=== PATIENT | male | born 1980 | race Caucasian/White ===

== ENCOUNTER 2020-09-11 14:00 | Emergency (ER) | payer MEDICAID, SELFPAY ==
--- NOTE | 2020-09-11 14:00 | RT.EKG_ITS ---
APPROVED REPORT Exam: Resting ECG Reason for Exam: chest pain Patient Location: E HR:64 bpm ECG Measurements Heart Rate 64 AXIS MD 167 P 44 QRSd 89 QRS 43 QT 356 T 35 QTc 368 Conclusion Sinus rhythm...normal P axis, V-rate 60- 99 No STEMI, no significant st elevation or depression.
[2020-09-11 14:05] VITALS: BP 152/94; PULSE 87; RESP 16; TEMP 36.7; O2SAT 98
--- NOTE | 2020-09-11 14:10 | DI.CT_ITS ---
Exam(s) CT CHEST/ABD/PEL W EXAM: CT CHEST/ABD/PEL W CLINICAL HISTORY: ruq pain and chest pain, sob. TECHNIQUE: Imaging Protocol: Axial computed tomography images with coronal and sagittal reformatted images were created and reviewed CONTRAST MATERIAL: Intravenous: Omnipaque 350 Contrast volume:100 ml Oral: None COMPARISON: No exams were available for comparison FINDINGS: CHEST: LUNGS: Some respiratory motion artifact noted.. There are mild increased markings both lung bases. No air bronchograms. No pleural effusions. No ominous pulmonary nodules evident. No significant fo madina findings in the trachea and mainstem bronchi. No bronchiectasis.. MEDIASTINUM: There is no hilar nor mediastinal adenopathy. Visualized thyroid unremarkable. CARDIAC: Heart size is upper normal. There is no pericardial effusion.Caliber of the thoracic aorta is within normal limits. OSSEOUS: No significant osseous lesions.. ABDOMEN: There is no ascites. LIVER: There are no focal hepatic lesions nor dilatation of intrahepatic ducts. GALLBLADDER/BILIARY: The gallbladder is contracted and difficult to evaluate. CBD is not dilated. PANCREAS: No evidence of pancreatic mass nor dilatation of the pancreatic duct. SPLEEN: Spleen size is upper normal.. There are no intrasplenic lesions. Splenic and portal veins a re patent. ADRENALS: There are no significant adrenal masses. KIDNEYS: No calculi nor hydronephrosis. No solid renal masses. Small 4 millimeters cyst in the inferi or aspect of the right kidney. ABDOMINAL AORTA: Abdominal aorta is not enlarged. LYMPH NODES: There is no retroperitoneal nor paraaortic adenopathy. ABDOMINAL WALL: No evidence of significant anterior abdominal wall hernia. There is a small fat cont aining anterior abdominal wall midline umbilical hernia. GI: There is no evidence of bowel obstruction. PELVIS: LYMPH NODES: There is no intrapelvic nor inguinal adenopathy. GI: No evidence of appendicitis.No evidence of sigmoid diverticulitis. URINARY BLADDER: No calculi nor masses evident REPRODUCTIVE: Prostate gland is enlarged and heterogeneous. Measures 5.8 cm wide by 4.3 cm AP. No o bturator adenopathy evident. OSSEOUS: No significant osseous lesions. IMPRESSION: 1. No significant acute intrathoracic findings. No pleural effusions 2. Enlarged heterogeneous prostate gland. Urology consultation recommended. 3. No other significant findings. 4. RADIATION DOSE DELIVERED: 1,435.2mGy.cm Total DLP DATA REPOSITORY: All CT scans at this facility are submitted to the National Radiology Data Registry (NRDR) Dose Index Registry (DIR) with the [employer] (ACR). RADIATION OPTIMIZATION: All CT scans at this facility use at least one of these dose optimization te chniques: automated exposure control; mA and/or kV adjustment per patient size (includes targeted exa ms where dose is matched to clinical indication); or iterative reconstruction.
--- NOTE | 2020-09-11 14:16 | W.ED.GENAD ---
Discharge Plan Disposition Patient Disposition: HOME Condition: Good Discharge Details Clinical Impression: Enlarged prostate, Biliary colic, Abdominal pain, acute, right upper quadrant Primary Care Provider: Melida Garcia ED Provider: Pedro Mariano Home Meds and New Rx's Prescriptions: Continued quetiapine 100 mg tablet See Rx Instructions PO .COMPLEX Qty: 30 RF: 1 naproxen 500 mg tablet 500 mg PO BID Qty: 14 RF: 0 nystatin 100,000 unit/gram powder 1 applic topical BID Qty: 60 RF: 0 Discharge Instructions Instructions: Biliary Colic (ED) Additional Instructions: At this time your work-up is very reassuring and shows no signs of etiologies requiring emergent surgical management. Your symptoms are concerning for what is called biliary colic which is a spasm of your gallbladder that is brought on by greasy foods. Please avoid any greasy food, dairy foods, or meats. Please take ibuprofen as needed for control of the pain. If you change your diet and still have persistent pain you may require surgery. Please follow-up closely with Dr. Ni the surgeon. If you notice any worsening of your symptoms, or any new symptoms such as vomiting, diarrhea, fever, chills, shortness of breath, chest pain, numbness, weakness, or fainting , please return immediately to the emergency department for reevaluation. Please follow up with your primary care provider as soon as possible for reassessment and reevaluation. As always, it was a pleasure participating in your medical care today. Additionally you do show evidence of enlargement of your prostate. Please follow-up closely with Dr. Abreu of urology for further assessment of this. Stand Alone Forms: Work Release Referrals: Tomy Abreu MD [ [facility] STAFF PHYSICIAN] - Kira Ni MD [ [facility] STAFF PHYSICIAN] - Melida Garcia, CHASER APPRENTICE [Primary Care Provider] - Medical Decision Making 40-year-old male who presents today for evaluation of right sided flank and epigastric/chest pain. Patient speaks [place]i, his friend is at bedside. Both patients have verbalized in Ghanaian but they are comfortable translating and speaking for 1 another. Patient states that for the last 3 weeks the patient has had gradual onset right sided/flank abdominal pain. It is gradually worsened, and notably become severe over the last 3 days. He states that it radiates to his right chest and to his back. He denies any tearing or ripping. He denies any cough, fever, vomiting or diarrhea. He denies any urinary complaint or genital pain. He denies previous abdominal surgeries. He states that he has been taking a notable amount of ibuprofen and Tylenol to help his pain. He denies having symptoms like this in the past otherwise. No other complaints at this time. No other modifying factors. He denies any falls or traumas. Physical exam demonstrates notable right-sided flank rib and right upper quadrant abdominal tenderness. Voluntary guarding is present. No signs of deformity or trauma. No genital tenderness. Differential is broad but includes gallbladder pathology, kidney stone, or lower pulmonary pathology. Based on the location findings and pain I do feel that CT scan is indicated at this time. We will treat the patient's pain rehydrate evaluate for atypical cardiac etiology, monitor closely and reassess. 4:50 PM Patient's laboratory work-up and CT scan have returned notably reassuring. No evidence of acute cholecystitis or kidney stone. Gallbladder is notably spasm, upon repeat discussion with the patient it does appear that he has a diet that is notably engorged with fatty foods. He does not notice a specific focus of fatty foods in his pain, but does state that most of what he eats is high fat and greasy. Suspect that this is the cause of his the symptomatology. Patient has almost complete resolution of his pain after IV Toradol. Patient feels well, vital signs stable. An incidental finding noted on the CT scan is an enlarged prostate. He continues to deny any urinary symptoms. Recommend close follow-up with urology. Discussed red flags, dietary changes for which to abide by. I have extensively reviewed the treatment plan and discharge instructions with the patient and their family. I have addressed all patient concerns at this time. The patient and family was made aware of what symptoms to monitor for that would warrant a return to the emergency department. Discussed the plan with the patient and family, they demonstrate verbal understanding and agreement with our assessment and plan at this time. The documentation in this chart was dictated using [employer] dictation software. Please excuse any dictation errors. FINDINGS: Lungs: Bibasilar atelectasis . No focal consolidation Pleural spaces: Unremarkable. No pneumothorax. No pleural effusion. Heart: Unremarkable. No cardiomegaly. No pericardial effusion. Aorta: Unremarkable. No aortic aneurysm. Lymph nodes: Unremarkable. No enlarged lymph nodes. Bones/joints: Unremarkable. No acute fracture. Soft tissues: Unremarkable. IMPRESSION: No acute process FINDINGS: Liver: Normal. No mass. Gallbladder and bile ducts: Contracted gallbladder Pancreas: Normal. No ductal dilation. Spleen: Normal. No splenomegaly. Adrenal glands: Normal. No mass. Kidneys and ureters: Normal. No hydronephrosis. Stomach and bowel: Unremarkable. No obstruction. No mucosal thickening. Appendix: Normal appendix Intraperitoneal space: Unremarkable. No free air. No significant fluid collection. Vasculature: Unremarkable. No abdominal aortic aneurysm. Lymph nodes: Unremarkable. No enlarged lymph nodes. Urinary bladder: Unremarkable as visualized. Reproductive: The prostate is enlarged and heterogeneous, greater than 5 cm. Recommend urology consult. Bones/joints: Unremarkable. No acute fracture. Soft tissues: Unremarkable. IMPRESSION: The prostate is enlarged and heterogeneous, greater than 5 cm. Recommend urology consult. Thank you for allowing us to participate in the care of your patient. Dictated and Authenticated by: Octaviano Chowdary MD 09/11/2020 4:10 PM Eastern Time ([place] & [place]) HPI General Date/Time Provider Initiated Documentation: 09/11/20 14:10. HPI Narrative: 40-year-old male who presents today for evaluation of right sided flank and epigastric/chest pain. Patient speaks [place]i, his friend is at bedside. Both patients have verbalized in [place]ian but they are comfortable translating and speaking for 1 another. Patient states that for the last 3 weeks the patient has had gradual onset right sided/flank abdominal pain. It is gradually worsened, and notably become severe over the last 3 days. He states that it radiates to his right chest and to his back. He denies any tearing or ripping. He denies any cough, fever, vomiting or diarrhea. He denies any urinary complaint or genital pain. He denies previous abdominal surgeries. He states that he has been taking a notable amount of ibuprofen and Tylenol to help his pain. He denies having symptoms like this in the past otherwise. No other complaints at this time. No other modifying factors. He denies any falls or traumas. Related Data Home Medications Medication Instructions Recorded Confirmed quetiapine 100 mg tablet See Rx Instructions PO .COMPLEX 08/06/20 08/31/20 #30 tab naproxen 500 mg tablet 500 mg PO BID #14 tab 08/27/20 08/31/20 nystatin 100,000 unit/gram topical 1 applic TOPICAL BID #60 g 08/27/20 08/31/20 powder Previous Rx's Medication Instructions Recorded quetiapine 100 mg tablet See Rx Instructions PO .COMPLEX 08/06/20 #30 tab naproxen 500 mg tablet 500 mg PO BID #14 tab 08/27/20 nystatin 100,000 unit/gram topical 1 applic TOPICAL BID #60 g 08/27/20 powder Allergies Allergy/AdvReac Type Severity Reaction Status Date / Time No Known Allergies Allergy Verified 09/11/20 14:09 General Stated Complaint: Abd Prob EULALIO: 3 Review of Systems All systems reviewed & are unremarkable except as noted in HPI and below PFSH Medical History History of ADHD Lumbar pain Neck pain Nicotine use disorder Personal history of schizophrenia Primary language is Bahraini Surgical History No significant past surgical history Family History Mother No problems noted. Father Unknown family medical history Social History Smoking/Tobacco Use Status: Current every day Quit status: considering quitting Smoking risk assessment performed?: Yes Alcohol Intake: current Alcohol Intake frequency: a few times a month Substance use type: does not use Household members: family Number of Children: 1 Communication Needs: Language Barriers current occupation: Construction. Of [place] ethnicity; primary language Bahraini. Sexually active: Yes Do you think of yourself as: straight/heterosexual Current gender identity: male Exam Narrative Exam Narrative: 1.Const: Well-nourished, Well-developed, appearing stated age 2.Eyes: PERRL, no conjunctival injection, and symmetrical lids. 3.ENT: Atraumatic external nose and ears. Dry MM. Neck: Symmetric, trachea midline, No thyromegaly. 4.CVS: +S1/S2, No murmurs or gallops. Peripheral pulses 2+ and equal in all extremities. Brisk capillary refill in all extremities. 5.RESP: Unlabored respiratory effort. Diminished breath sounds throughout, but otherwise clear to auscultation bilaterally. No wheezes rales or rhonchi 6.GI: Soft, pain in the right upper quadrant, notably reproducible. Voluntary guarding is present. Right CVA tenderness is present. Mild right posterior rib pain is present. No genital pain or discomfort. No testicular tenderness. 7.MSK: Normocephalic/Atraumatic, Extremities w/o deformity or ttp No cyanosis or clubbing, Normal movement of all extremities. No evidence of bruising or paradoxical movements over the right ribs. 8.Skin: Warm, Dry. No rashes or lesions. 9.Neuro: timber cutter II-XII grossly intact. Sensation grossly intact, no focal neurologic deficits. 10.Psych: (AAO) x3. Appropriate mood and affect Course Vital Signs Vital signs: Vital Signs Temperature 36.7 C 09/11/20 14:05 Pulse 87 09/11/20 14:05 Respiratory Rate 16 09/11/20 14:05 Blood Pressure 152/94 H 09/11/20 14:05 Pulse Oximetry 98 09/11/20 14:05 Temperature 36.7 C 09/11/20 14:05 Temperature Source Temporal Artery Scan 09/11/20 14:05 Pulse 87 09/11/20 14:05 Respiratory Rate 16 09/11/20 14:05 Blood Pressure 152/94 H 09/11/20 14:05 Blood Pressure Position Sitting 09/11/20 14:05 Pulse Oximetry 98 09/11/20 14:05 Oxygen Delivery Method Room Air 09/11/20 14:05 Oxygen Flow Rate 0 09/11/20 14:05
[2020-09-11 14:23] LABS: Abs Immature Grans 0.01 10^3/uL (0.0-0.06); Absolute Basophil Count 0.04 10^3/uL (0.0-0.2); Absolute Eosinophil Count 0.16 10^3/uL (0.0-0.7); Absolute Lymphocyte Count 1.83 10^3/uL (1.2-3.4); Absolute Monocyte Count 0.55 10^3/uL (0.1-0.8); Absolute Neutrophil Count 3.77 10^3/uL (1.2-6.7); Basophils % 0.6; Eosinophils % 2.5; HCT 47.2 % (40.0-50.0); Immature Grans % 0.2; Lymphocytes % 28.8; MCH 29.7 pg (27.0-33.0); MCHC 33.9 % (32.0-36.0); MCV 87.6 fL (80-95); Monocytes % 8.6; Neutrophils % 59.3; Nucleated RBC 0 %; Platelet Count 209 10^3/uL (130-400); RBC 5.39 10^6/uL (4.36-5.78); RDW 13.2 % (11.8-14.1); RDW-SD 42.5 fL; WBC 6.36 10^3/uL (4.4-10.8)
[2020-09-11] MEDS: Normal Saline 1,000 ML 1000 ML IV (14:26)
[2020-09-11 14:44] LABS: Acetaminophen 8 ug/mL (10-30); Troponin I < 0.05 ng/mL (<0.06)
[2020-09-11 14:47] LABS: ALT 64 U/L (16-63); AST 46 U/L (15-37); Albumin 3.5 g/dL (3.4-5.0); Alkaline Phosphatase 98 U/L (46-116); Anion Gap 8.2 mmol/L (3-11); BUN 13 mg/dL (7-18); Bilirubin, Total 0.4 mg/dL (0.2-1.0); CO2 25.8 mmol/L (21.0-32.0); Calcium 8.5 mg/dL (8.5-10.1); Chloride 108 mmol/L (98-107); Glucose 113 mg/dL (74-106); Potassium 4.5 mmol/L (3.5-5.1); Sodium 142 mmol/L (136-145); Total Protein 7.3 g/dL (6.4-8.2)
[2020-09-11 14:50] LABS: PTT Activated 22.5 sec (21.0-27.5); Prothrombin Time 10.4 sec (9.3-11.0)
[2020-09-11] MEDS: Omnipaque 350 MG/ML 100 ML BTL IJ (15:03)
[2020-09-11] MEDS: Normal Saline Flush 10 ML SYR IVP (15:04)
[2020-09-11 15:27] VITALS: BP 122/64; PULSE 71; RESP 16; TEMP 36.8; O2SAT 98
[2020-09-11 15:44] LABS: Bilirubin Negative (Negative); Blood Negative (Negative); Clarity Clear (Clear); Glucose Negative (Negative); Ketones Negative (Negative); Leukocyte Esterase Negative (Negative); Nitrite Negative (Negative); Specific Gravity 1.015 (1.005-1.025); Urobilinogen 0.2 EU/dL (Up TO 0.2)
[2020-09-11] MEDS: Ketorolac 30 MG/ML VIAL IVP (16:00)
--- NOTE | 2020-09-11 16:11 | DI.VRAD_ITS ---
PROCEDURE INFORMATION: Exam: CT Chest With Contrast; Diagnostic Exam date and time: 09/11/2020 3:11 PM Age: 40 years old Clinical indication: Other: Ruq pain and chest pain TECHNIQUE: Imaging protocol: Diagnostic computed tomography of the chest with contrast. 3D rendering (Not supervised by radiologist): MIP and/or 3D reconstructed images were created by the technologist. Radiation optimization: All CT scans at this facility use at least one of these dose optimization techniques: automated exposure control; mA and/or kV adjustment per patient size (includes targeted exams where dose is matched to clinical indication); or iterative reconstruction. Contrast material: OMNI 350; Contrast volume: 100 ml; Contrast route: INTRAVENOUS (IV); COMPARISON: No relevant prior studies available. FINDINGS: Lungs: Bibasilar atelectasis . No focal consolidation Pleural spaces: Unremarkable. No pneumothorax. No pleural effusion. Heart: Unremarkable. No cardiomegaly. No pericardial effusion. Aorta: Unremarkable. No aortic aneurysm. Lymph nodes: Unremarkable. No enlarged lymph nodes. Bones/joints: Unremarkable. No acute fracture. Soft tissues: Unremarkable. IMPRESSION: No acute process PROCEDURE INFORMATION: Exam: CT Abdomen And Pelvis With Contrast Exam date and time: 09/11/2020 3:11 PM Age: 40 years old Clinical indication: Other: Ruq pain and chest pain TECHNIQUE: Imaging protocol: Computed tomography of the abdomen and pelvis with contrast. 3D rendering (Not supervised by radiologist): MIP and/or 3D reconstructed images were created by the technologist. Radiation optimization: All CT scans at this facility use at least one of these dose optimization techniques: automated exposure control; mA and/or kV adjustment per patient size (includes targeted exams where dose is matched to clinical indication); or iterative reconstruction. Contrast material: OMNI 350; Contrast volume: 100 ml; Contrast route: INTRAVENOUS (IV); COMPARISON: No relevant prior studies available. FINDINGS: Liver: Normal. No mass. Gallbladder and bile ducts: Contracted gallbladder Pancreas: Normal. No ductal dilation. Spleen: Normal. No splenomegaly. Adrenal glands: Normal. No mass. Kidneys and ureters: Normal. No hydronephrosis. Stomach and bowel: Unremarkable. No obstruction. No mucosal thickening. Appendix: Normal appendix Intraperitoneal space: Unremarkable. No free air. No significant fluid collection. Vasculature: Unremarkable. No abdominal aortic aneurysm. Lymph nodes: Unremarkable. No enlarged lymph nodes. Urinary bladder: Unremarkable as visualized. Reproductive: The prostate is enlarged and heterogeneous, greater than 5 cm. Recommend urology consult. Bones/joints: Unremarkable. No acute fracture. Soft tissues: Unremarkable. IMPRESSION: The prostate is enlarged and heterogeneous, greater than 5 cm. Recommend urology consult. Dictated and Authenticated by: Octaviano Chowdary MD. Ordering:RUDY Vasquez MD
--- NOTE | 2020-09-11 17:09 | NUR.NOTE ---
Nursing Note: FAXED REFERRAL TO UROLOGY. [facility]
== END 2020-09-11 17:02 | disposition home or self-care (01) ==
PROVIDERS: Emergency Provider Student in an Organized Health Care Education/Training Program; PCP Nurse Practitioner Adult Health
DX: R10.11 Right upper quadrant pain (principal); N40.0 Benign prostatic hyperplasia without lower urinary tract symptoms; K80.50 Calculus of bile duct without cholangitis or cholecystitis without obstruction
CPT/HCPCS: 74177; 80053; 93005; 96361; 96374; 96375; 99285; 71260; 80329; 81003; 84484; 85025; 85610; 85730; 93010; 99283; J1885; J3490